=== PATIENT | female | born 1955 | race Caucasian/White ===

== ENCOUNTER → 2021-08-20 11:14 | Outpatient (BNVA) | payer OTHER, SELFPAY | PROVIDERS: Family Provider Family Medicine; Visit Provider Family Medicine | DX: I10 Essential (primary) hypertension (principal); E78.5 Hyperlipidemia, unspecified | CPT/HCPCS: 80053; 80061; 82043; 85025 ==

== ENCOUNTER 2021-10-25 15:11 | Outpatient (CLI) | payer OTHER, SELFPAY ==
--- NOTE | 2021-10-25 15:23 | MM_ITS ---
WS: [email or web address] VIEWS: MLO and CC views both breasts. 3D digital tomosynthesis is also included in this exam. Comparison made with prior exam of 10/31/2009, 11/01/2010, 01/18/2014, 12/28/2015, 12/29/2016, 03/09/2018.. Findings: There was no sign of mass, architectural distortion or suspicious calcification in either breast. He terogeneously dense MM/[place] [id number] Impression: BI-RADS: 2-Benign FOLLOW-UP: 1 Year Follow-up This mammogram was also analyzed by the Computer Aided Detection System R2 Imag e Family Caseworker.
== END 2021-10-25 15:12 | disposition home or self-care (01) ==
LOC: RADSHAW 15:15
PROVIDERS: PCP Family Medicine; Visit Provider Family Medicine
DX: Z12.31 Encounter for screening mammogram for malignant neoplasm of breast (principal)
CPT/HCPCS: 77063; 77067

== ENCOUNTER → 2022-08-18 11:12 | Outpatient (BNVA) | payer OTHER, SELFPAY | PROVIDERS: PCP Family Medicine; Visit Provider Family Medicine | DX: I10 Essential (primary) hypertension (principal); E78.5 Hyperlipidemia, unspecified; N39.46 Mixed incontinence; F41.1 Generalized anxiety disorder; F17.219 Nicotine dependence, cigarettes, with unspecified nicotine-induced disorders; Z12.31 Encounter for screening mammogram for malignant neoplasm of breast | CPT/HCPCS: 80053; 80061; 82043; 85025 ==

== ENCOUNTER 2022-10-28 09:49 | Outpatient (CLI) | payer OTHER, SELFPAY ==
--- NOTE | 2022-10-28 09:59 | MM_ITS ---
WS: [email or web address] VIEWS: MLO and CC views both breasts. 3D digital tomosynthesis is also included in this exam. Comparison made with prior exam of 11/01/2010, 01/18/2014, 12/28/2015, 12/29/2016, 03/09/2018, 10/25/2021.. Findings: There was no sign of mass, architectural distortion or suspicious calcification in either breast. Th e breasts are heterogeneously dense MM/[place] [id number] Impression: BI-RADS: 2-Benign FOLLOW-UP: 1 Year Follow-up This mammogram was also analyzed by the Computer Aided Detection System R2 Imag e Shoder Filler.
== END 2022-10-28 09:50 | disposition home or self-care (01) ==
LOC: RAD 09:52
PROVIDERS: PCP Family Medicine; Visit Provider Family Medicine
DX: Z12.31 Encounter for screening mammogram for malignant neoplasm of breast (principal)
CPT/HCPCS: 77063; 77067; 80053; 80061; 82043; 85025

== ENCOUNTER → 2023-02-09 10:36 | Outpatient (BNVA) | payer OTHER, SELFPAY | PROVIDERS: PCP Family Medicine; Visit Provider Family Medicine | DX: I10 Essential (primary) hypertension (principal) | CPT/HCPCS: 80053 ==

== ENCOUNTER → 2023-08-10 10:35 | Outpatient (BNVA) | payer OTHER, SELFPAY | PROVIDERS: PCP Family Medicine; Visit Provider Family Medicine | DX: I10 Essential (primary) hypertension (principal) | CPT/HCPCS: 80053; 80061; 82043; 82306; 85025 ==

== ENCOUNTER 2023-08-20 14:52 | Outpatient (CLI) | payer MEDICARE, SELFPAY ==
--- NOTE | 2023-08-20 15:30 | XR_ITS ---
WS: [email or web address] DEXA (DUAL ENERGY X-RAY ABSORPTIOMETRY) Bone mineral density was performed using a [employer] machine. HISTORY: postmenopausal COMPARISON: None available. Lumbar spine BMD (L1-L4): 1.039 g/cm2 T score: -1.2 Z score: -0.6 Total hip BMD: Left: 0.757 g/cm2. T score: -2.0 Z score: -1.5 Right: 0.756 g/cm2. T score: -2.0 Z score: -1.5 10 year probability of a major osteoporotic fracture is 13.9%. IMPRESSION: OSTEOPENIA based upon the WHO classification for females.
== END 2023-08-20 14:53 | disposition home or self-care (01) ==
LOC: RAD 14:53
PROVIDERS: PCP Family Medicine; Visit Provider Family Medicine
DX: Z78.0 Asymptomatic menopausal state (principal); M85.80 Other specified disorders of bone density and structure, unspecified site
CPT/HCPCS: 77080; 82977

== ENCOUNTER 2023-09-16 08:33 | Outpatient (CLI) | payer MEDICARE, SELFPAY ==
--- NOTE | 2023-09-16 08:45 | NM_ITS ---
WS: [email or web address] NUCLEAR MEDICINE WHOLE BODY BONE SCAN HISTORY: Elevated Alk. Phos. COMPARISON: None available. TECHNIQUE: The patient was injected with 23.4 mCi of Technetium 99m HDP and serial whole-body scintig zay have been performed with anterior and posterior images. Increased uptake in the L3 vertebral body most likely acute to subacute fracture. 2 adjacent anterior LEFT ribs demonstrate increased uptake. This appears to be the fourth and fifth ribs. Due to the dis tribution this is most likely secondary to fractures/trauma. There is moderate uptake involving the knees bilaterally but greatest on the RIGHT. Osteoarthritic ch anges at the ankles and in the mid feet and at the SC and AC joints. Normal soft tissue uptake. IMPRESSION: 1. Adjacent areas of increased uptake involving the LEFT anterior fourth and fifth ribs most likely fractures. This corresponds to radiographs performed on the same day. 2. L3 subacute fracture. Radiograph performed on the same day demonstrates sclerosis along the infer ior endplate of L3. 3. Advanced degenerative changes in the knees. Slightly greater on the RIGHT. The findings on bone s can are out of proportion to the findings radiographically. MRI RIGHT knee was recommended for furthe r evaluation.
--- NOTE | 2023-09-16 11:24 | XR_ITS ---
WS: [email or web address] LUMBAR SPINE: 2 VIEWS TECHNIQUE: AP and lateral. HISTORY: LOWER BACK PAIN/BONE SCAN COMPARISON COMPARISON: Bone scan 09/16/2023 Mild curvature. Seen best on the lateral projection is a fracture through the inferior endplate of L3 without retropu lsion. There is sclerosis along the endplate and fracture line. This does correspond to the finding o n the recent bone scan of a subacute fracture. There is also mild anterior wedging of L1 which is not positive on the bone scan. IMPRESSION: 1. Subacute fracture involving the inferior endplate of L3 without retropulsion. Very minimal loss o f height. 2. Remote anterior wedging of L1.
--- NOTE | 2023-09-16 11:24 | XR_ITS ---
WS: [email or web address] LEFT RIBS, MULTIPLE VIEWS HISTORY: POSS LEFT RIB FRACTURE/ BONE SCAN COMPARISON COMPARISON: Bone scan imaging 09/16/2023 Ribs: Very slight callus formation increased sclerosis involving the anterior LEFT fourth and fifth r ibs. Right-sided ribs are negative. Lungs and mediastinum: There is a soft tissue nodule in the LEFT lower lung field, probably the lingu la measuring 11 x 12 mm which needs to be further evaluated for possible neoplasm. Atherosclerosis ao rta. IMPRESSION: 1. Callus formation in the anterior LEFT fourth and fifth ribs from healing fractures. Correspond to the findings on recent bone scan. 2. Soft tissue nodule LEFT lower lung field, probably lingula, measures 11 x 12 mm. Recommend follo w-up chest CT with IV contrast.
--- NOTE | 2023-09-16 11:24 | XR_ITS ---
WS: [email or web address] RIGHT KNEE: 2 VIEW(S) TECHNIQUE: AP and lateral. HISTORY: RIGHT KNEE PAIN/ BONE SCAN COMPARISON COMPARISON: Bone scan 09/16/2023. RIGHT knee radiograph is obtained in correlation with the bone scan imaging. There is mild osteopenia and only very mild narrowing of the joint space. The extent of the abnormal uptake involving the femoral condyles and proximal tibia is out of proportion to the changes radiogra phically. No joint effusion. No soft tissue abnormality. IMPRESSION: 1. Only mild osteoarthritic changes involving the RIGHT knee. 2. Changes involving the RIGHT knee on the bone scan are out of proportion as compared to the radiog raph. These changes may be related to osteopenia and osteoclastic activity. Consider evaluation by MR I of the RIGHT knee to better evaluate the bone.
== END 2023-09-16 08:34 | disposition home or self-care (01) ==
LOC: RAD 08:35
PROVIDERS: PCP Family Medicine; Visit Provider Family Medicine
DX: R74.8 Abnormal levels of other serum enzymes (principal); M17.0 Bilateral primary osteoarthritis of knee; R94.8 Abnormal results of function studies of other organs and systems; S32.039A Unspecified fracture of third lumbar vertebra, initial encounter for closed fracture; X58.XXXA Exposure to other specified factors, initial encounter; M48.56XA Collapsed vertebra, not elsewhere classified, lumbar region, initial encounter for fracture; S22.42XD Multiple fractures of ribs, left side, subsequent encounter for fracture with routine healing; X58.XXXD Exposure to other specified factors, subsequent encounter; R91.1 Solitary pulmonary nodule
CPT/HCPCS: 71100; 72100; 73560; 78306; A9561

== ENCOUNTER 2023-10-07 15:05 | Outpatient (CLI) | payer MEDICARE, SELFPAY ==
--- NOTE | 2023-10-07 15:15 | CT_ITS ---
WS: [email or web address] CT chest w con* [id number] HISTORY: lung mass TECHNIQUE: Axial imaging performed through the thorax. Coronal and sagittal reformats are submitted. All CT scans at [facility] use at least one of these dose optimization techniques: automated exposure control; mA and/or kV adjustment per patient size (includes targeted exams where dose is mat ched to clinical indication); or iterative reconstruction. CONTRAST: Omnipaque 350; 100 mL IV. DLP: 491.62 mGy.cm COMPARISON: Rib series 09/16/2023 Lungs and central airway: Irregular consolidation noted on the recent rib series at the lingula corre sponds to a linear atelectasis versus scar in the LEFT upper lobe. There is additional scarring in th e LEFT lower lobe. No mass or pneumonia is identified. Pleura: Normal. No pleural effusion. Heart and pericardium: Mild enlargement of the heart. No pericardial or pleural effusions. Mediastinum and nevaeh: No mediastinum or hilar adenopathy. Vessels: Mild atherosclerosis aorta. Pulmonary artery is very slightly dilated. Chest wall and lower neck: Well-circumscribed low-attenuation nodule RIGHT thyroid. Nodule measures 9 mm in diameter. Upper abdomen: Small hiatal hernia. Hepatic steatosis. Mild thinning and scarring upper pole RIGHT ki dney. 9 mm cortical cyst upper pole RIGHT kidney. No adrenal mass. Osseous structures: Advanced degenerative changes in thoracic spine. Mild sclerotic changes in the an terior fourth and fifth ribs from prior fractures with healing. IMPRESSION: 1. Irregular opacification in the lingula noted on recent chest radiograph corresponds to a linear a adalberto of scarring or atelectasis. No suspicious pulmonary mass or nodule. 2. No adenopathy. 3. Mild cardiomegaly and mild pulmonary hypertension. 4. Subcentimeter RIGHT thyroid nodule. This can be evaluated by ultrasound.
[2023-10-07] MEDS: iohexol 350 mg/mL 500 mL Btl (per mL) IV (15:29)
== END 2023-10-07 15:06 | disposition home or self-care (01) ==
LOC: RAD 15:05
PROVIDERS: PCP Family Medicine; Visit Provider Family Medicine
DX: R91.8 Other nonspecific abnormal finding of lung field (principal); I51.7 Cardiomegaly; E04.1 Nontoxic single thyroid nodule
CPT/HCPCS: 71260; Q9967

== ENCOUNTER 2023-10-20 07:15 | Outpatient (CLI) | payer MEDICARE, SELFPAY ==
--- NOTE | 2023-10-20 07:45 | USCV_ITS ---
Ale Lagunas Age: 68 Gender: F : 1955 Exam Date: 10/20/2023 07:38 Ordering Phys: Lazara Puckett DO Technologist: KAMILA Exam Location: [facility] [place] Indication: SHORTNESS OF BREATH BP: 135 / 70 HR: 50 Rhythm: Sinus Technical Quality: Adequate MEASUREMENTS (Male / Female) Normal Values 2D ECHO LV Diastolic Diameter PLAX 5.7 cm 4.2 - 5.9 / 3.9 - 5.3 cm IVS Diastolic Thickness 0.9 cm 0.6 - 1.0 / 0.6 - 0.9 cm IVS Systolic Thickness 1.8 cm LVPW Diastolic Thickness 1.9 cm 0.6 - 1.0 / 0.6 - 0.9 cm LVPW Systolic Thickness 2.6 cm LVOT Diameter 2.0 cm LV Ejection Fraction 2D Teich 64.5 % LV Ejection Fraction MOD 2C 62.6 % LV Ejection Fraction 2C AL 65.7 % LA Diameter 4.2 cm RA Systolic Volume 4C AL 35.4 ml RA Systolic Volume 4C MOD 32.8 ml LA Sys Volume AL 76.6 cm cubed LA Sys Volume Index AL 36.0 cm cubed/m squared Aorta at Sinotubular Diameter 2.6 cm IVC Diameter 1.1 cm M-MODE LA Ao Ratio MM 1.5 AV Cusp Separation MM 1.8 cm DOPPLER AV Peak Velocity 148.0 cm/s LVOT Peak Velocity 132.0 cm/s AV Area Cont Eq vti 3.2 cm squared AV Area Cont Eq pk 2.8 cm squared MV Peak Velocity 96.0 cm/s MV Area PHT 3.7 cm squared Mitral E to A Ratio 1.3 TR Peak Velocity 221.0 cm/s TR Peak Gradient 19.5 mmHg TR Mean Velocity 176.0 cm/s TR Mean Gradient 13.6 mmHg TR Velocity Time Integral 69.9 cm TV Peak E Velocity 50.0 cm/s Right Atrial Pressure 3.0 mmHg Pulmonary Artery Systolic Pressu 22.5 mmHg PV Peak Velocity 100.0 cm/s RV Ejection Time 0.4 s FINDINGS Left Ventricle Normal left ventricular size, systolic function and wall thickness, with no regional wall motion abnormalities. Normal left ventricular wall thickness. Normal diastolic filling pattern. Left ventricular ejection fraction is estimated at 60 %. Right Ventricle The right ventricle is normal in size and function. Right Atrium The right atrium is normal in size. Left Atrium Mildly increased left atrial size. Mitral Valve Structurally normal mitral valve. Mild-moderate mitral valve regurgitation. Aortic Valve Structurally normal aortic valve without significant sclerosis or stenosis. There is no aortic regurgitation. Tricuspid Valve Structurally normal tricuspid valve without significant stenosis or regurgitation. Pulmonary artery systolic pressure is normal. Pulmonic Valve Pulmonic valve not well visualized. Pericardium Normal pericardium without effusion. Aorta Normal ascending aorta dimension. IVC The inferior vena cava appears normal. CONCLUSIONS Normal left ventricular size, systolic function and wall thickness, with no regional wall motion abnormalities. Normal left ventricular wall thickness. Normal diastolic filling pattern. Left ventricular ejection fraction is estimated at 60 %. Mildly increased left atrial size. Structurally normal mitral valve. Mild-moderate mitral valve regurgitation. Previous study was in October 2016. There is essentially no change however the mitral regurgitation may be slightly worse. Dr. Guerrero Sears MD (Electronically Signed) Final Date: 20 October 2023 09:32 S
--- NOTE | 2023-10-20 08:30 | US_ITS ---
WS: [email or web address] THYROID ULTRASOUND HISTORY: Thyroid Nodule COMPARISON: None available. Right lobe: 1.8 cm x 1.6 cm x 5.2 cm (w x ap x l). Volume: 7.1 cm3. Hypoechoic nodules in the inferior pole. There are low-level echoes throughout. No increased vascular ity or echogenic foci. This nodule measures 1.1 x 1.0 x 1.7 cm. There is slight through transmission. Left lobe: 1.5 cm x 1.2 cm x 3.6 cm (w x ap x l). Volume: 3.1 cm3. Normal sized gland with mild heterogeneity. Isthmus: 0.2 cm. IMPRESSION: 1. TI-RADS 3; mildly suspicious nodule in the inferior pole RIGHT thyroid. Recommend yearly ultrasou nd evaluation. This may be a complex colloid cyst or spongiform nodule.
== END 2023-10-20 07:16 | disposition home or self-care (01) ==
LOC: RAD 07:16
PROVIDERS: PCP Family Medicine; Visit Provider Family Medicine
DX: E04.1 Nontoxic single thyroid nodule (principal); I51.7 Cardiomegaly
CPT/HCPCS: 76536; 93306

== ENCOUNTER 2023-12-28 10:02 | Outpatient (CLI) | payer MEDICARE, SELFPAY ==
--- NOTE | 2023-12-28 10:15 | MR_ITS ---
WS: [email or web address] MRI RIGHT KNEE NONCONTRAST TECHNIQUE: Axial PD, coronal PD fat sat, coronal PD, sagittal PD, and sagittal PD fat-sat images obta ined. CLINICAL INFORMATION: knee pain COMPARISON: None. FINDINGS: Distal quadriceps and patella tendons are intact. Hypertrophic patella. Mucoid degeneration of the ACL with associated ganglion cyst measuring 9.4 x 4.6 mm along the proxima l fibers. PCL appears intact. Advanced chondromalacia patella. Medial and lateral patellar retinaculu m appear intact. Medial and lateral collateral ligaments appear intact. Normal fibula head. Normal popliteal fossa. Horizontal tear involving the posterior horn medial menis cus extending to the articular surface. Peripheral extrusion of the medial meniscus. Chronic intrasub stance signal abnormality in the medial meniscus. Lateral meniscus is intact. MR/MR knee RT wo con* [id number] IMPRESSION: 1. 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 Ganglion cyst measures approximately 9.4 x 4.6 mm 2. Normal PCL. 3. Horizontal tear involving the posterior horn medial meniscus extending to t he articular surface. Peripheral extrusion of the medial meniscus. 4. Advanced chondromalacia patella worse involving the medial patella facet. 5. 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 Outbridge grading: grade IV: full-thickness cartilage loss with underlying bone reactive changes
== END 2023-12-28 10:03 | disposition home or self-care (01) ==
LOC: RAD 10:03
PROVIDERS: PCP Family Medicine; Visit Provider Family Medicine
DX: R94.8 Abnormal results of function studies of other organs and systems (principal); R74.8 Abnormal levels of other serum enzymes; M79.4 Hypertrophy of (infrapatellar) fat pad; M23.611 Other spontaneous disruption of anterior cruciate ligament of right knee; M67.461 Ganglion, right knee; M23.221 Derangement of posterior horn of medial meniscus due to old tear or injury, right knee; M22.41 Chondromalacia patellae, right knee; M17.11 Unilateral primary osteoarthritis, right knee
CPT/HCPCS: 73721

== ENCOUNTER → 2024-01-21 09:42 | Outpatient (BNVA) | payer MEDICARE, SELFPAY | PROVIDERS: PCP Family Medicine; Visit Provider Student in an Organized Health Care Education/Training Program | DX: M25.561 Pain in right knee | CPT/HCPCS: 73560; 73565; 99204 ==

== ENCOUNTER → 2024-04-05 11:46 | Outpatient (BNVA) | payer MEDICARE, SELFPAY | PROVIDERS: PCP Family Medicine; Visit Provider Student in an Organized Health Care Education/Training Program | DX: M25.561 Pain in right knee (principal); S83.206A Unspecified tear of unspecified meniscus, current injury, right knee, initial encounter; X58.XXXA Exposure to other specified factors, initial encounter | CPT/HCPCS: 20610; 99213; J3301 ==

== ENCOUNTER 2024-04-14 12:03 | Outpatient (RCR) | payer MEDICARE, SELFPAY | END 2024-05-05 23:59 | disposition home or self-care (01) | LOC: SPT 12:03 | PROVIDERS: PCP Family Medicine Adult Medicine; Visit Provider Student in an Organized Health Care Education/Training Program | DX: M25.561 Pain in right knee (principal) | CPT/HCPCS: 97110; 97161 ==

== ENCOUNTER 2024-05-06 06:00 | Outpatient (RCR) | payer MEDICARE, SELFPAY | END 2024-05-11 23:59 | disposition home or self-care (01) | LOC: SPT 06:00 | PROVIDERS: PCP Family Medicine Adult Medicine; Visit Provider Student in an Organized Health Care Education/Training Program | DX: M25.561 Pain in right knee (principal) | CPT/HCPCS: 97110 ==

== ENCOUNTER 2024-06-24 11:03 | Outpatient (CLI) | payer MEDICARE, SELFPAY ==
--- NOTE | 2024-06-24 11:20 | MM_ITS ---
WS: [email or web address] BILATERAL SCREENING DIGITAL TOMOSYNTHESIS MAMMOGRAM WITH CAD HISTORY: screeing COMPARISON: 10/28/2022, 10/25/2021, 03/09/2018 Bilateral CC and MLO views with tomosynthesis and synthetic mammography submitted. Computer aided det ection analyzed. Breast composition: The breasts are heterogeneously dense, which may obscure small masses. No suspici ous masses, microcalcifications or architectural distortion. Benign calcifications LEFT breast. No reynolds spicious grouping of calcifications. No mass. MM/MM scr BI tomosynthesis [id number] IMPRESSION: BI-RADS: 2 - Benign FOLLOW UP: 1 Year Follow-up
== END 2024-06-24 11:04 | disposition home or self-care (01) ==
LOC: RAD 11:04
PROVIDERS: PCP Family Medicine Adult Medicine
DX: Z12.31 Encounter for screening mammogram for malignant neoplasm of breast (principal); R92.333 Mammographic heterogeneous density, bilateral breasts; R92.1 Mammographic calcification found on diagnostic imaging of breast; E78.5 Hyperlipidemia, unspecified
CPT/HCPCS: 77063; 77067; 80053; 80061

== ENCOUNTER → 2024-07-21 14:45 | Outpatient (BNVA) | payer MEDICARE, SELFPAY | PROVIDERS: PCP Family Medicine Adult Medicine; Visit Provider Student in an Organized Health Care Education/Training Program | DX: S83.206D Unspecified tear of unspecified meniscus, current injury, right knee, subsequent encounter; X58.XXXD Exposure to other specified factors, subsequent encounter | CPT/HCPCS: 99213 ==

== ENCOUNTER → 2025-02-13 08:57 | Outpatient (BNVA) | payer MEDICARE, SELFPAY | DX: E78.5 Hyperlipidemia, unspecified (principal) | CPT/HCPCS: 80053; 80061; 85025 ==

== ENCOUNTER 2025-02-16 13:33 | Outpatient (CLI) | payer MEDICARE, SELFPAY ==
--- NOTE | 2025-02-16 13:45 | US_ITS ---
WS: [email or web address] THYROID ULTRASOUND HISTORY: annual thyroid ultrasound COMPARISON: 10/20/2023 Right lobe: 1.5 cm x 1.6 cm x 4.2 cm (w x ap x l). Volume: 4.9 cm3. Normal sized gland. Hypoechoic nodule with low-level echoes in the lower pole measures 1.3 x 0.9 x 1.8 cm. There is no increased vascularity. Nodule is unchanged since the prior study. Left lobe: 1.4 cm x 0.9 cm x 3.7 cm (w x ap x l). Volume: 2.4 cm3. Normal size and echotexture. No significant or dominant nodules are present. Isthmus: 0.2 cm. US/US thyroid [id number] IMPRESSION: 1. TI-RADS 3; hypoechoic nodule without increased vascularity lower pole RIGHT thyroid has not changed in size or appearance since 10/20/2023. This may be a c olloid cyst or hemorrhagic cyst. Recommend continued yearly evaluation. 2. No LEFT thyroid nodule.
== END 2025-02-16 13:34 | disposition home or self-care (01) ==
LOC: RAD 13:34
DX: E04.1 Nontoxic single thyroid nodule (principal)
CPT/HCPCS: 76536